=== PATIENT | female | born 1980 | race Caucasian/White ===

== ENCOUNTER 2019-05-27 05:05 | Emergency (ER) | payer SELFPAY ==
[~2019-05-27] VITALS: Ht 160 cm; Wt 70.9 kg
[2019-05-27 05:08] VITALS: Ht 160 cm; Wt 70.9 kg
[2019-05-27] MEDS ORDERED: HYDROCODON-ACE1 EAC7 PO (06:27)
[2019-05-27 08:12] VITALS: BP 110/76
== END 2019-05-27 08:13 | disposition home or self-care (01) ==
LOC: D.ER 05:05
DX: S43.005A Unspecified dislocation of left shoulder joint, initial encounter (principal); X58.XXXA Exposure to other specified factors, initial encounter; Y93.89 Activity, other specified; Y92.89 Other specified places as the place of occurrence of the external cause

== ENCOUNTER 2019-06-24 22:23 | Emergency (ER) | payer SELFPAY ==
[~2019-06-24] VITALS: Ht 160 cm; Wt 67.3 kg
[~2019-06-24 22:23] MED LIST: HYDROCODON-ACE1 EAC7 PO
[2019-06-24 22:30] VITALS: Ht 160 cm; Wt 67.3 kg
[2019-06-25] MEDS ORDERED: HYDROCODONE-A1 UDTA2 PO (01:05)
[2019-06-25 01:29] VITALS: BP 124/75
== END 2019-06-25 01:18 | disposition home or self-care (01) ==
LOC: D.ER 22:23
DX: M24.411 Recurrent dislocation, right shoulder (principal)

== ENCOUNTER 2019-08-18 05:05 | Emergency (ER) | payer MEDICAID ==
[~2019-08-18] VITALS: Ht 160 cm; Wt 72.1 kg
[~2019-08-18 05:05] MED LIST changes: +HYDROCODONE-A1 UDTA2 PO
[2019-08-18 05:07] VITALS: Ht 160 cm; Wt 72.1 kg
[2019-08-18 07:10] VITALS: BP 118/76
== END 2019-08-18 07:10 | disposition home or self-care (01) ==
LOC: D.ER 05:05
DX: S43.005A Unspecified dislocation of left shoulder joint, initial encounter (principal); X58.XXXA Exposure to other specified factors, initial encounter; Y93.9 Activity, unspecified; Y92.9 Unspecified place or not applicable

== ENCOUNTER 2019-11-20 10:17 | Emergency (ER) | payer MEDICAID ==
[~2019-11-20] VITALS: Ht 160 cm; Wt 63.6 kg
[2019-11-20 10:22] VITALS: Ht 160 cm; Wt 63.6 kg
[2019-11-20] MEDS ORDERED: GABAPENTIN100 MG PO (10:23)
[2019-11-20] MEDS ORDERED: STERAPRED DS 1010 MG PO (10:23)
[2019-11-20] MEDS ORDERED: NORCO-7.51 TAB PO (12:30)
[2019-11-20 15:07] VITALS: BP 135/63
== END 2019-11-20 15:16 | disposition home or self-care (01) ==
LOC: D.ER 10:17
DX: S43.005A Unspecified dislocation of left shoulder joint, initial encounter (principal); X58.XXXA Exposure to other specified factors, initial encounter

== ENCOUNTER 2020-02-21 16:21 | Emergency (ER) | payer MEDICAID ==
[~2020-02-21] VITALS: Ht 160 cm; Wt 61.4 kg
[~2020-02-21 16:21] MED LIST changes: +GABAPENTIN100 MG PO; +NORCO-7.51 TAB PO; +STERAPRED DS 1010 MG PO
[2020-02-21 16:28] VITALS: Ht 160 cm; Wt 61.4 kg
[2020-02-21] MEDS ORDERED: GABAPENTIN100 MG PO (17:37)
[2020-02-21 18:11] VITALS: BP 134/77
== END 2020-02-21 18:12 | disposition home or self-care (01) ==
LOC: D.ER 16:21
DX: M24.412 Recurrent dislocation, left shoulder (principal)